=== PATIENT | male | born 1960 | race Caucasian/White ===

== ENCOUNTER 2022-03-19 12:19 | Emergency (ER) | payer OTHER ==
[2022-03-19 12:24] VITALS: BP 128/79; PULSE 87; TEMP 97.8; BMI 20.9
[2022-03-19] MEDS ORDERED: KETOROLAC TROMETHAMINE 30 MG/1 ML VIAL IM ONE (13:06)
[2022-03-19] MEDS ORDERED: KETOROLAC TROMETHAMINE 30 MG/1 ML VIAL ONE (13:13)
== END 2022-03-19 13:21 | disposition home or self-care (01) ==
LOC: JERFT 12:19
PROC: 3E023GC Introduction of Other Therapeutic Substance into Muscle, Percutaneous Approach (ICD-10-PCS; principal; 2022-03-19)
DX: B02.9 Zoster without complications (principal); B02.29 Other postherpetic nervous system involvement
CPT/HCPCS: 99284-25